=== PATIENT | male | born 1975 | race Hispanic/Latino ===

== ENCOUNTER 2024-06-17 14:38 | Inpatient (IN) | payer OTHER ==
[2024-06-17 14:57] LABS: #Basophils Less than 0.03 10x3/uL (0.0-0.2); %Basophils 0.4 % (0.0-1.0); %Lymphocytes 26.7 % (21.0-51.0); %Monocytes 6.3 % (0.0-10.0); %Neutrophils 64.6 % (42.0-75.0); Hematocrit 36.2 % (42.0-52.0); Hemoglobin 13.2 g/dL (14.0-18.0); Mean Corpuscular HGB CONC 36.5 g/dL (32.0-36.0); Mean Corpuscular Hemoglobin 30.2 pg (27.0-31.0); Mean Corpuscular Volume 82.8 fL (78.0-98.0); Mean Platelet Volume 11.2 fL (7.4-10.4); Platelet Count 206 10x3/uL (130-400); RBC Distribution Width 12.1 % (11.5-14.5); Red Blood Cell (RBC) Count 4.37 mill/uL (4.70-6.10)
[2024-06-17 15:18] LABS: ALT (SGPT) 33 U/L (8-55); AST (SGOT) 26 U/L (5-34); Albumin 3.7 g/dL (3.5-5.0); Alkaline Phosphatase 186 U/L (40-110); Anion Gap 17 mmol/L (10-20); BUN (Urea Nitrogen) 14 mg/dL (8.9-20.6); Bilirubin, Total 0.3 mg/dL (0.2-1.2); Calc. Creatinine Clearance 0 mL/min (70-130); Calcium 8.8 mg/dL (7.8-10.44); Carbon Dioxide 18 mmol/L (22-29); Chloride 102 mmol/L (98-107); Estimated GFR 63; Globulin 4.8 g/dL (2.4-3.5); Glucose 710 mg/dL (70-105); Potassium 4.8 mmol/L (3.5-5.1); Protein, Total 8.5 g/dL (6.0-8.3); Sodium 132 mmol/L (136-145)
[2024-06-17 16:33] LABS: Lipase 78 U/L (8-78)
[2024-06-17 16:39] LABS: Actual Bicarbonate (HCO3v) 22.6 mEq/L (22-28); Base Excess -2.6 mEq/L (-2.0 to +3.0); Calcium, Ionized (venous) 1.15 mmol/L (1.16-1.32); Chloride (VBG) 100 mmol/L (98-106); Hematocrit-VBG 41 % (42.0-52.0); Hemoglobin (Hb) 13.9 g/dL (13.1-17.2); Potassium (VBG) 4.89 mmol/L (3.70-5.30); Sodium 134 mmol/L (133-146); pH (venous) 7.362 (7.32-7.43)
[2024-06-17 17:01] LABS: Bacteria/HPF None Seen HPF (None Seen); Bilirubin Negative (Negative); Blood, Urine Negative (Negative); CAUTI Indications for Culture Pelvic or flank pain; Clarity Clear (Clear); Glucose, Urine (Dipstick) Greater than 1000 mg/dL (Negative); Ketone, Urine 40 mg/dL (Negative); Leukocyte Negative Leu/uL (Negative); Nitrite Negative (Negative); Protein, Urine (Dipstick) Negative (Neg-Trace); RBC/HPF 0-3 HPF (0-3); Specific Gravity, Urine 1.029 (1.002-1.036); Squamous Epithelial None Seen HPF (0-3); Urobilinogen Normal mg/dL (Less than 2); WBC/HPF 0-3 HPF (0-3)
[2024-06-17 17:04] LABS: Urine Culture Reflex No No
[2024-06-17] MEDS ORDERED: Electrolyte Replacement Protocol 1 EACH IVPB PRN (17:34)
[2024-06-17] MEDS ORDERED: NS 0.9% w/ 20 MEQ KCL 1,000 ML IV PRN ×2 (17:34)
[2024-06-17] MEDS ORDERED: Dextrose 5 %-0.45 % NaCl 1,000 ML IV PRN (17:34)
[2024-06-17] MEDS ORDERED: Sodium Chloride 0.9% 1,000 ML IV PRN ×4 (17:34)
[2024-06-17] MEDS ORDERED: Dextrose 50% Abboject 50 ML SYRINGE SLOW IVP PRN (17:34)
[2024-06-17] MEDS ORDERED: Insulin Regular, Human 100 UNIT/ML 10 ML VIAL ONE (17:36)
[2024-06-17] MEDS ORDERED: INSULIN REGULAR IN 0.9 % NACL 100 UNITS/100 ML BAG ONE (17:37)
[2024-06-17] MEDS ORDERED: Electrolyte Replacement Protocol FS PRN (18:00)
[2024-06-17] MEDS ORDERED: INSULIN REGULAR IN 0.9 % NACL 100 UNITS in Premix 1 BAG IVPB SCH (18:00)
[2024-06-17 18:58] LABS: Anion Gap 14 mmol/L (10-20); BUN (Urea Nitrogen) 13 mg/dL (8.9-20.6); Calc. Creatinine Clearance 0 mL/min (70-130); Calcium 8.7 mg/dL (7.8-10.44); Carbon Dioxide 18 mmol/L (22-29); Chloride 107 mmol/L (98-107); Estimated GFR 95; Glucose 399 mg/dL (70-105); Potassium 3.6 mmol/L (3.5-5.1); Sodium 135 mmol/L (136-145)
[2024-06-17] MEDS: D5 1/2 NS w/20 mEq KCL 1,000 ML IV PRN (20:19)
[2024-06-17] MEDS: Magnesium 2 GM/50 ML(in water) 2 GM in Premix 1 BAG IVPB SCH (20:19)
[2024-06-17 21:20] VITALS: BMI 27.2
[2024-06-17 23:35] LABS: Anion Gap 11 mmol/L (10-20); BUN (Urea Nitrogen) 10 mg/dL (8.9-20.6); Calc. Creatinine Clearance 122 mL/min (70-130); Carbon Dioxide 18 mmol/L (22-29); Chloride 109 mmol/L (98-107); Estimated GFR 108; Glucose 244 mg/dL (70-105); Potassium 3.5 mmol/L (3.5-5.1); Sodium 134 mmol/L (136-145)
[2024-06-17] MEDS ORDERED: Glucagon 1 MG/ML KIT IM PRN (23:57)
[2024-06-17] MEDS ORDERED: Dextrose 5% in Water 1,000 ML IV PRN (23:57)
[2024-06-18] MEDS: Insulin Glargine 30 UNITS/0.3 ML VIAL SC SCH ×2 (00:09→08:01)
[2024-06-18] MEDS: Potassium Chloride 20 MEQ TAB PO SCH (02:03)
[2024-06-18 04:50] LABS: Anion Gap 13 mmol/L (10-20); BUN (Urea Nitrogen) 8 mg/dL (8.9-20.6); Calc. Creatinine Clearance 131 mL/min (70-130); Calcium 8.2 mg/dL (7.8-10.44); Carbon Dioxide 19 mmol/L (22-29); Chloride 110 mmol/L (98-107); Estimated GFR 110; Glucose 94 mg/dL (70-105); Magnesium 2.2 mg/dL (1.6-2.6); Potassium 4.3 mmol/L (3.5-5.1); Sodium 138 mmol/L (136-145)
[2024-06-18] MEDS: Insulin Lispro 100 UNIT/ML 10 ML VIAL SC PRN ×2 (10:52→21:11)
[2024-06-18] MEDS: metFORMIN 500 MG TAB PO SCH (16:41)
[2024-06-19 10:05] LABS: Anion Gap 8 mmol/L (10-20); BUN (Urea Nitrogen) 9 mg/dL (8.9-20.6); Calc. Creatinine Clearance 117 mL/min (70-130); Calcium 9.1 mg/dL (7.8-10.44); Carbon Dioxide 23 mmol/L (22-29); Chloride 107 mmol/L (98-107); Estimated GFR 107; Glucose 258 mg/dL (70-105); Potassium 3.4 mmol/L (3.5-5.1); Sodium 135 mmol/L (136-145)
[2024-06-19] MEDS: Potassium Chloride 20 MEQ TAB PO SCH (11:51)
[2024-06-19] MEDS: metFORMIN 500 MG TAB PO SCH (17:05)
[2024-06-20 07:24] LABS: Anion Gap 10 mmol/L (10-20); BUN (Urea Nitrogen) 9 mg/dL (8.9-20.6); Calc. Creatinine Clearance 125 mL/min (70-130); Calcium 9.1 mg/dL (7.8-10.44); Carbon Dioxide 25 mmol/L (22-29); Chloride 105 mmol/L (98-107); Estimated GFR 108; Glucose 121 mg/dL (70-105); Potassium 3.5 mmol/L (3.5-5.1); Sodium 136 mmol/L (136-145)
[2024-06-20] MEDS: Potassium Chloride 20 MEQ TAB PO SCH (08:21)
[2024-06-20 09:50] VITALS: BP 130/82; TEMP 97.6
== END 2024-06-20 10:39 | disposition home or self-care (01) | DRG 639 ==
LOC: ERS 14:38 → ERHOLD 16:10 → IMCU/EMU 18:58 → T4-B 06-18 14:46
PROVIDERS: ADMIT Internal Medicine; ATTEND Internal Medicine
DX: E11.00 Type 2 diabetes mellitus with hyperosmolarity without nonketotic hyperglycemic-hyperosmolar coma (NKHHC) (principal); F32.A Depression, unspecified; Z79.84 Long term (current) use of oral hypoglycemic drugs; Z98.890 Other specified postprocedural states; F15.10 Other stimulant abuse, uncomplicated; Z91.199 Patient's noncompliance with other medical treatment and regimen due to unspecified reason; Z79.4 Long term (current) use of insulin; Z79.899 Other long term (current) drug therapy
CPT/HCPCS: 36415; 36416; 80048; 80053; 81001; 82010; 82805; 83605; 83690; 83735; 85025; 93005; 96361; 96365; 96376; J1815; J3475; J3480

== ENCOUNTER 2024-09-01 11:34 | Outpatient (CLI) | payer OTHER | END 2024-09-01 11:35 | disposition home or self-care (01) | LOC: BICRAD 11:34 | PROVIDERS: ATTEND Nurse Practitioner Family | DX: M25.562 Pain in left knee (principal); M17.12 Unilateral primary osteoarthritis, left knee; S82.492D Other fracture of shaft of left fibula, subsequent encounter for closed fracture with routine healing; M25.862 Other specified joint disorders, left knee; M25.762 Osteophyte, left knee; M76.892 Other specified enthesopathies of left lower limb, excluding foot ==